=== PATIENT | female | born 1960 | race Caucasian/White ===

== ENCOUNTER → 2019-01-10 | Outpatient (REF) | payer OTHER, BC | LOC: M LAB REF 08:36 | PROVIDERS: ATTEND Physician Assistant | DX: M54.5 Low back pain (principal) ==

== ENCOUNTER → 2021-02-15 | Outpatient (REF) | payer OTHER, BC | LOC: M LAB REF 12:53 | PROVIDERS: ATTEND Nurse Practitioner Family | DX: E83.42 Hypomagnesemia (principal) ==

== ENCOUNTER → 2021-03-01 | Outpatient (REF) | payer BC | LOC: M LAB REF 17:15 | PROVIDERS: ATTEND Nurse Practitioner Family | DX: E83.42 Hypomagnesemia (principal) ==

== ENCOUNTER → 2021-03-06 | Outpatient (REF) | payer BC, OTHER | LOC: M LAB REF 16:07 | PROVIDERS: ATTEND Physician Assistant | DX: D23.39 Other benign neoplasm of skin of other parts of face (principal) ==

== ENCOUNTER → 2021-05-09 | Outpatient (REF) | payer OTHER | LOC: M LAB REF 12:42 | PROVIDERS: ATTEND Nurse Practitioner Family | DX: E83.42 Hypomagnesemia (principal) ==

== ENCOUNTER → 2021-11-22 | Outpatient (CLI) | payer BC, OTHER | LOC: M RAD 13:23 | PROVIDERS: ATTEND Nurse Practitioner Adult Health | DX: R06.02 Shortness of breath (principal); R91.8 Other nonspecific abnormal finding of lung field; Z86.16 Personal history of COVID-19 ==

== ENCOUNTER → 2022-12-06 | Outpatient (CLI) | payer BC, OTHER | LOC: M RAD 14:20 | PROVIDERS: ATTEND Nurse Practitioner Adult Health | DX: R91.8 Other nonspecific abnormal finding of lung field (principal) ==

== ENCOUNTER → 2023-01-06 | Outpatient (CLI) | payer BC, OTHER | LOC: M PLARAD 12:54 | PROVIDERS: ATTEND Nurse Practitioner Adult Health | DX: R91.8 Other nonspecific abnormal finding of lung field (principal) | CPT/HCPCS: 78815; A9552 ==

== ENCOUNTER → 2023-02-28 | Outpatient (REF) | payer BC, OTHER ==
[2023-02-28 19:01] LABS: BACTERIA, URINE AUTO NEGATIVE (NEGATIVE); RBC, URINE AUTO 0 /HPF (0-3); SQUAMOUS EPITHELIAL CELL UR AU 3 /HPF (0-6); WBC, URINE AUTO 4 /HPF (0-3)
== END ==
LOC: M LAB REF 17:10
PROVIDERS: ATTEND Nurse Practitioner Family
DX: R31.29 Other microscopic hematuria (principal); Z87.440 Personal history of urinary (tract) infections

== ENCOUNTER → 2023-11-12 | Outpatient (CLI) | payer BC | LOC: M RAD 14:39 | PROVIDERS: ATTEND Internal Medicine Pulmonary Disease | DX: R91.8 Other nonspecific abnormal finding of lung field (principal) ==